=== PATIENT | female | born 1970 | race Caucasian/White ===

== ENCOUNTER 2016-08-27 18:02 | Emergency (ER) | payer OTHER ==
[~2016-08-27] VITALS: Ht 157.5 cm; Wt 63.6 kg
[~2016-08-27 18:02] MED LIST: ALPR1TAB7 PO; ASPI81TA3 PO; GABA300C16 PO; LOVA10TA63 PO; METH-493 PO
[2016-08-27] MEDS ORDERED: SOD CHLORIDE 0.9% 1,000 ML IV STA ×2 (18:10→19:21)
[2016-08-27 18:12] VITALS: Ht 157.5 cm; Wt 63.6 kg
[2016-08-27 18:33] LABS: ADD SCAN DIFF NO
[2016-08-27 18:36] LABS: BASOPHILS % 0.2 % (0.0-2.0); HEMATOCRIT 45.6 % (37.0-47.0); LYMPHOCYTES % 7.9 % (15.0-51.0); MEAN CORPUSCULAR HEMOGLOBIN 24.9 pg (29.0-33.0); MEAN CORPUSCULAR HGB CONC 32.9 g/dl (32.0-37.0); MEAN CORPUSCULAR VOLUME 75.6 fl (82.0-101.0); MEAN PLATELET VOLUME 10.6 fl (7.4-10.4); MONOCYTE # 0.3 10^3/ul (0.3-0.9); MONOCYTES % 2.3 % (0.0-11.0); NEUTROPHILS % 88.9 % (39.0-77.0); PLATELET COUNT 267 10^3/UL (140-415); RED BLOOD COUNT 6.03 10^6/ul (4.20-5.40); RED CELL DISTRIBUTION WIDTH 14.4 % (11.5-14.5); WHITE BLOOD COUNT 12.4 10^3/ul (4.8-10.8)
[2016-08-27 18:51] LABS: INR 1.02; PARTIAL THROMBOPLASTIN TIME 23.9 Sec (25.0-35.0); PROTIME 13.4 Sec (12.2-14.2)
[2016-08-27 19:06] LABS: ADD UMIC YES; URINE BILIRUBIN (Dip) NEGATIVE (NEGATIVE); URINE BLOOD (Dip) NEGATIVE (NEGATIVE); URINE GLUCOSE (Dip) NEGATIVE (NEGATIVE); URINE KETONES (Dip) 3+ (NEGATIVE); URINE LEUKOCYTE ESTERASE (Dip) NEGATIVE (NEGATIVE); URINE NITRITE (Dip) NEGATIVE (NEGATIVE); URINE TOTAL PROTEIN (Dip) 1+ (NEGATIVE); URINE UROBILINOGEN (Dip) 0.2 E.U./dL (0.1-1.0)
[2016-08-27 19:06] LABS: ALBUMIN 5.1 g/dl (3.3-4.9)
[2016-08-27 19:07] LABS: CHLORIDE 101 mmol/L (97-110); POTASSIUM 3.9 mmol/L (3.5-5.1); SODIUM 141 mmol/L (135-144)
[2016-08-27 19:09] LABS: BILIRUBIN,INDIRECT 0.6 mg/dl (0-1.1); BILIRUBIN,TOTAL 0.6 mg/dl (0.2-1.3); CREATININE 0.69 mg/dl (0.44-1.00)
[2016-08-27 19:10] LABS: ALANINE AMINOTRANSFERASE 14 IU/L (13-69); ALKALINE PHOSPHATASE 88 IU/L (42-121); ANION GAP 25 (8-16); ASPARTATE AMINO TRANSFERASE 22 IU/L (15-46); BLOOD UREA NITROGEN 14 mg/dl (7-20); CALCIUM 10.6 mg/dl (8.4-10.2); CARBON DIOXIDE 19 mmol/L (21-31); GLUCOSE 147 mg/dl (70-220); TOTAL PROTEIN 8.5 g/dl (6.1-8.1)
[2016-08-27 19:14] LABS: URINE COLOR YELLOW (YELLOW)
[2016-08-27 19:18] LABS: ACETAMINOPHEN < 10.0 ug/ml (10.0-30.0); ETHANOL < 10.0 mg/dl; SALICYLATE < 1.0 mg/dl (5.0-30.0)
[2016-08-27 19:21] LABS: SQUAMOUS EPITHELIAL CELL,UR FEW; URINE RBCS NONE SEEN /HPF (0)
[2016-08-27] MEDS ORDERED: ONDANSETRON 4 MG INJ ONE (19:26)
[2016-08-27] MEDS ORDERED: ONDANSETRON 4 MG INJ IV STA (19:29)
[2016-08-27 19:37] LABS: BARBITURATES NEGATIVE (NEGATIVE); BENZODIAZEPINES POSITIVE (NEGATIVE); CANNABINOIDS POSITIVE (NEGATIVE); COCAINE NEGATIVE (NEGATIVE); OPIATES NEGATIVE (NEGATIVE)
--- NOTE | 2016-08-27 22:07 | ERA ---
ER Documentation Chief Complaint Date/Time DATE: 08/27/16 TIME: 22:04 Chief Complaint Suicide attempt this morning, overdose on pills HPI This 46-year-old female presents to the emergency room for a suicide attempt. This patient took an unknown amount of rozerem, and Xanax and attempted suicide. The patient states that she has been feeling depressed. She denies any previous suicide attempt. She denies any other coingestions and came to the ER for evaluation after she called 911. ROS All systems reviewed and are negative except as per history of present illness. Medications Home Meds Active Scripts Gabapentin* (Gabapentin*) 300 Mg Capsule, 600 MG PO TID for 30 Days, #120 CAP Prov:NETTA DIMAS MD 02/23/16 Methimazole* (Methimazole*) 5 Mg Tablet, 10 MG PO QHS for 30 Days, #30 TAB Prov:NETTA DIMAS MD 02/23/16 Reported Medications Alprazolam* (Alprazolam*) 1 Mg Tablet, 2 MG PO BID, TAB 02/15/16 Aspirin (Aspirin) 81 Mg Chew, 81 MG PO DAILY 10/04/12 Lovastatin* (Lovastatin*) 10 Mg Tablet, 20 MG PO DAILY 10/04/12 Allergies Allergies: Coded Allergies: No Known Allergy (Verified , 02/15/16) PMhx/Soc History of Surgery: No Hx Neurological Disorder: No Hx Respiratory Disorders: No Hx Cardiac Disorders: No Hx Psychiatric Problems: Yes (bipolar disorder) Hx Miscellaneous Medical Probl: Yes (bipolar disorder, alcohol induced peripheral neuropathy, anxiety) Hx Alcohol Use: Yes Hx Substance Use: Yes (xanax) Hx Tobacco Use: Yes (current smoker) Smoking Status: Current every day smoker Physical Exam Vitals Vital Signs Date Time Temp Pulse Resp B/P Pulse Ox O2 Delivery O2 Flow Rate FiO2 08/27/16 20:01 91 28 140/91 97 Room Air 08/27/16 18:12 97.6 70 16 148/82 100 Physical Exam Const: Actively vomiting Head: Atraumatic Eyes: Normal Conjunctiva ENT: Normal External Ears, Nose and Mouth. Neck: Full range of motion..~ No meningismus. Resp: Clear to auscultation bilaterally Cardio: Regular rate and rhythm, no murmurs Abd: Soft, non tender, non distended. Normal bowel sounds Skin: No petechiae or rashes Back: No midline or flank tenderness Ext: No cyanosis, or edema Neur: Awake and alert Psych: Normal Mood and Affect Result Diagram: 08/27/16 1826 08/27/16 1800 Results 24 hrs Laboratory Tests Test 08/27/16 18:00 08/27/16 18:26 08/27/16 18:40 Sodium Level 141mmol/L Potassium Level 3.9mmol/L Chloride Level 101mmol/L Carbon Dioxide Level 19mmol/L Anion Gap 25 Blood Urea Nitrogen 14mg/dl Creatinine 0.69mg/dl Glucose Level 147mg/dl Calcium Level 10.6mg/dl Total Bilirubin 0.6mg/dl Direct Bilirubin 0.00mg/dl Indirect Bilirubin 0.6mg/dl Aspartate Amino Transf (AST/SGOT) 22IU/L Alanine Aminotransferase (ALT/SGPT) 14IU/L Alkaline Phosphatase 88IU/L Total Protein 8.5g/dl Albumin 5.1g/dl Globulin 3.40g/dl Albumin/Globulin Ratio 1.50 Salicylates Level < 1.0mg/dl Acetaminophen Level < 10.0ug/ml Ethyl Alcohol Level < 10.0mg/dl White Blood Count 12.410^3/ul Red Blood Count 6.0310^6/ul Hemoglobin 15.0g/dl Hematocrit 45.6% Mean Corpuscular Volume 75.6fl Mean Corpuscular Hemoglobin 24.9pg Mean Corpuscular Hemoglobin Concent 32.9g/dl Red Cell Distribution Width 14.4% Platelet Count 91082^3/UL Mean Platelet Volume 10.6fl Neutrophils % 88.9% Lymphocytes % 7.9% Monocytes % 2.3% Eosinophils % 0.0% Basophils % 0.2% Nucleated Red Blood Cells % 0.0/100WBC Neutrophils # 11.010^3/ul Lymphocytes # 1.010^3/ul Monocytes # 0.310^3/ul Eosinophils # 0.010^3/ul Basophils # 0.010^3/ul Nucleated Red Blood Cells # 0.010^3/ul Prothrombin Time 13.4Sec Prothrombin Time Ratio 1.0 INR International Normalized Ratio 1.02 Activated Partial Thromboplast Time 23.9Sec Urine Color YELLOW Urine Clarity CLEAR Urine pH 6.0 Urine Specific [place] >=1.030 Urine Ketones 3+ Urine Nitrite NEGATIVE Urine Bilirubin NEGATIVE Urine Urobilinogen 0.2 E.U./dL Urine Leukocyte Esterase NEGATIVE Urine Microscopic RBC NONE SEEN/HPF Urine Microscopic WBC 0-2/HPF Urine Squamous Epithelial Cells FEW Urine Hemoglobin NEGATIVE Urine Glucose NEGATIVE% Urine Total Protein 1+ Urine Opiates Screen NEGATIVE Urine Barbiturates NEGATIVE Urine Amphetamines Screen NEGATIVE Urine Benzodiazepines Screen POSITIVE Urine Cocaine Screen NEGATIVE Urine Cannabinoids POSITIVE Current Medications Medications (Trade) Dose Ordered Sig/[place] Route PRN Reason Start Time Stop Time Status Last Admin Dose Admin Sodium Chloride 1,000 ml @ 1,000 mls/hr Q1H STAT IV 08/27/16 18:10 08/27/16 19:09 DC 08/27/16 19:24 Sodium Chloride (NS) 1,000 ml @ 1,000 mls/hr Q1H STAT IV 08/27/16 19:21 08/27/16 20:20 DC 08/27/16 19:33 Ondansetron HCl (Zofran Inj) 4 mg STK-MED ONCE .ROUTE 08/27/16 19:26 08/27/16 19:27 DC Ondansetron HCl (Zofran Inj) 4 mg ONCE STAT IV 08/27/16 19:29 08/27/16 19:31 DC 08/27/16 19:32 Procedures/MDM EKG: Rate/Rhythm: [Normal Sinus Rhythm] QRS, ST, T-waves: [No changes consistent w/ acute ischemia] Impression: [No evidence of ischemia or arrhythmia] This 46-year-old female presents to the ER for suicide attempt. The patient did take Xanax, and rozerem. She took greater than 1 hour to her carotid in the emergency room. As she is actively vomiting when I evaluated her. This patient did have lab work drawn and she does have positive benzodiazepines and cannabinoids on drug screen. She is hemodynamically stable. We have contacted poison control who are okay with her management at this time. This patient is on the timeframe to receive activated charcoal. She will be placed in for inpatient psychiatric admission at this time. Patient presents with symptomatology consistent with the decompensation of previously diagnosed psychiatric disease. Based on history, physical exam and appropriate lab tests , I appreciate no evidence of significant life-threatening injury or illness that includes a psychiatric hospitalization. Patient is thus "medically clear" for psychiatric admission. In regards to the psychiatric complaints, this patient has clear evidence of high risk psychiatric symptoms with significant risk for decompensation, thus requiring admission to the hospital for stabilization. Departure Diagnosis: Primary Impression: Suicide threat or attempt Condition: APRIL Girard DO Aug 27, 2016 22:07
[2016-08-27 23:29] LABS: ALBUMIN 4.2 g/dl (3.3-4.9); POTASSIUM 3.5 mmol/L (3.5-5.1)
[2016-08-27 23:31] LABS: CREATININE 0.57 mg/dl (0.44-1.00)
[2016-08-27 23:32] LABS: ALBUMIN/GLOBULIN RATIO 1.44; BILIRUBIN,INDIRECT 0.4 mg/dl (0-1.1); BILIRUBIN,TOTAL 0.4 mg/dl (0.2-1.3); TOTAL PROTEIN 7.1 g/dl (6.1-8.1)
[2016-08-28] MEDS ORDERED: SOD CHLORIDE 0.9% 1,000 ML IV ONE ×2 (00:30)
[2016-08-28] MEDS ORDERED: ONDANSETRON 4 MG INJ IV STA ×2 (02:16→09:53)
--- NOTE | 2016-08-28 03:10 | PSY ---
Date/Time of Note Date/Time of Note DATE: 08/27/16 TIME: 22:49 Psychiatric Subjective Eval Consent Pt consented to telemedicine: Yes Subjective Evaluation Patient location: emergency Chief Complaint: Suicide attempt this morning, overdose on pills Reason for consult: suicidal attemtp History of present illness patient is a 46 yo female with PPH Of bipolar do who came to the ER due to a suicidal attempt, she overdosed on rozerem and xanax, she states that she has been feeling depressed, hopeless and helpless for weeks bu would not want to share with me why, she is anxious most of the time, denies any current or recent manic or psychotic symptoms but has had manic episode in the past, denies any drug or alcohol abuse. she state that she took the pills in order to kill herself, states that she has nothing to live for. denies any current si or hi. she is taking a lot of medication and does not know which she is supposed to take. list of possible medication she is on: latuda 60 mg daily 07/31/16 wellbutrin 150 mg po qd from 2015 with no refill gabapentin 600 mg po tid buspirone 15 mg bid depakote 250 mg po bid temazepam 15 mg po 2 tab po qhs prn xyzal 5 mg qd 08/09 cymbalta 60 mg po qd 08/09 xanax 08/09/16 2 mg bid 60 rozerem 8 mg po qhs 30 tablet Past psychiatric history past suicidal attempt yes Hospitalization: yes Family History denies Medical history Problems Medical Problems: (1) Acute weakness Status: Acute (2) Hyperthyroidism Status: Acute (3) [place] toxicity Status: Acute (4) Severe sepsis Status: Acute (5) Suicide threat or attempt Status: Acute Allergies: Coded Allergies: No Known Allergy (Verified , 02/15/16) Substance Abuse Substance use: No known substance abuse Social History Marital status: single Level of education: hs DPA/Conservatorship: No Occupation/Jail: unemployed Psychiatric Objective Eval Review of Systems: Review of Systems: Not Applicable Physical Examination: Physical Examination: Applicable Sleep: Insomnia Appetite: Decreased Energy: Decreased Interest: Decreased Mental Status Examination: Eye Contact: Good Psychomotor Activity: Normal Behavior: Cooperative Speech: Clear AFFECT: Depressed Mood: Depressed Though Process: Linear Thought Content: Normal Suicidal: No Homicidal: No On 72 hour hold: No Cognition: Alert Insight: Impared Judgement: Impared Attention Span: Intact Laboratory Results Laboratory Tests Test 08/27/16 18:00 08/27/16 18:26 08/27/16 18:40 Sodium Level 141mmol/L Potassium Level 3.9mmol/L Chloride Level 101mmol/L Carbon Dioxide Level 19mmol/L Anion Gap 25 Blood Urea Nitrogen 14mg/dl Creatinine 0.69mg/dl Glucose Level 147mg/dl Calcium Level 10.6mg/dl Total Bilirubin 0.6mg/dl Direct Bilirubin 0.00mg/dl Indirect Bilirubin 0.6mg/dl Aspartate Amino Transf (AST/SGOT) 22IU/L Alanine Aminotransferase (ALT/SGPT) 14IU/L Alkaline Phosphatase 88IU/L Total Protein 8.5g/dl Albumin 5.1g/dl Globulin 3.40g/dl Albumin/Globulin Ratio 1.50 Salicylates Level < 1.0mg/dl Acetaminophen Level < 10.0ug/ml Ethyl Alcohol Level < 10.0mg/dl White Blood Count 12.410^3/ul Red Blood Count 6.0310^6/ul Hemoglobin 15.0g/dl Hematocrit 45.6% Mean Corpuscular Volume 75.6fl Mean Corpuscular Hemoglobin 24.9pg Mean Corpuscular Hemoglobin Concent 32.9g/dl Red Cell Distribution Width 14.4% Platelet Count 55927^3/UL Mean Platelet Volume 10.6fl Neutrophils % 88.9% Lymphocytes % 7.9% Monocytes % 2.3% Eosinophils % 0.0% Basophils % 0.2% Nucleated Red Blood Cells % 0.0/100WBC Neutrophils # 11.010^3/ul Lymphocytes # 1.010^3/ul Monocytes # 0.310^3/ul Eosinophils # 0.010^3/ul Basophils # 0.010^3/ul Nucleated Red Blood Cells # 0.010^3/ul Prothrombin Time 13.4Sec Prothrombin Time Ratio 1.0 INR International Normalized Ratio 1.02 Activated Partial Thromboplast Time 23.9Sec Urine Color YELLOW Urine Clarity CLEAR Urine pH 6.0 Urine Specific [place] >=1.030 Urine Ketones 3+ Urine Nitrite NEGATIVE Urine Bilirubin NEGATIVE Urine Urobilinogen 0.2 E.U./dL Urine Leukocyte Esterase NEGATIVE Urine Microscopic RBC NONE SEEN/HPF Urine Microscopic WBC 0-2/HPF Urine Squamous Epithelial Cells FEW Urine Hemoglobin NEGATIVE Urine Glucose NEGATIVE% Urine Total Protein 1+ Urine Opiates Screen NEGATIVE Urine Barbiturates NEGATIVE Urine Amphetamines Screen NEGATIVE Urine Benzodiazepines Screen POSITIVE Urine Cocaine Screen NEGATIVE Urine Cannabinoids POSITIVE Assessment and Plan Assessment/Diagnosis [place] I: bipolar do type I current episode depressed severe without psychotic features generalized anxiety do [place] II: deferred [place] III: as per record [place] IV: poor social support [place] V: gaf 25 Recommendation/Plan Medication Management continue gabapentin 600 mg po tid discontinue wellbutrin, buspirone and depakote continue cymbalta 60 mg po qd continue latuda 60 mg po qd change xanax 2 mg po bid for ativan 2 mg po tid discontinue temazepam and continue rozerem 8 mg po qhs for sleep Follow-up/Disposition Please admit patient on unvoluntary status due to Danger to self, In my opinion, patient currently MEETS criterion for inpatient care and CANNOT be safely treated at a lower level of care today as evidenced by the following risk factors: Recent Suicidal Ideation severe self-destructive behavior Intense feelings of hopelessness and lack of future orientation. Significant recent DETERIORATION in function, behavior and thought processes Patient has failed outpatient and requires further inpatient assessment Medication changes require observation unavailable at a lower level of care 2440 Recommendation: EVIE Triplett MD Aug 27, 2016 23:05
[2016-08-28 04:03] LABS: ALBUMIN 3.8 g/dl (3.3-4.9); POTASSIUM 3.8 mmol/L (3.5-5.1)
[2016-08-28 04:05] LABS: BILIRUBIN,INDIRECT 0.4 mg/dl (0-1.1); BILIRUBIN,TOTAL 0.4 mg/dl (0.2-1.3); CREATININE 0.6 mg/dl (0.44-1.00)
[2016-08-28 04:06] LABS: ALBUMIN/GLOBULIN RATIO 1.31; CALCIUM 8.8 mg/dl (8.4-10.2); TOTAL PROTEIN 6.7 g/dl (6.1-8.1)
[2016-08-28] MEDS ORDERED: LEVO5TAB10 PO (16:51)
[2016-08-28] MEDS ORDERED: DIPH25CA6 PO (16:52)
[2016-08-28] MEDS ORDERED: ALPR2TAB PO (16:53)
[2016-08-28] MEDS ORDERED: DULO60CA59 PO (16:53)
[2016-08-28] MEDS ORDERED: LURA60TA PO (16:54)
[2016-08-28] MEDS ORDERED: GABA-526 PO (16:54)
[2016-08-28] MEDS ORDERED: BUPR150T6 PO (16:56)
[2016-08-28] MEDS ORDERED: BUSP10TA2 PO (16:56)
[2016-08-28] MEDS ORDERED: RAME8TAB10 PO (16:56)
[2016-08-28] MEDS ORDERED: LIDO1KIT TP (16:58)
[2016-08-28] MEDS ORDERED: FLUT16SP17 NASAL (16:59)
[2016-08-29 03:37] VITALS: BP 134/74; PULSE 60; RESP 16; TEMP 98
== END 2016-08-29 03:59 ==
LOC: E/R 18:02
DX: T42.6X2A Poisoning by other antiepileptic and sedative-hypnotic drugs, intentional self-harm, initial encounter (principal); R40.2252 Coma scale, best verbal response, oriented, at arrival to emergency department; F17.210 Nicotine dependence, cigarettes, uncomplicated; R40.2142 Coma scale, eyes open, spontaneous, at arrival to emergency department; T42.4X2A Poisoning by benzodiazepines, intentional self-harm, initial encounter; R40.2362 Coma scale, best motor response, obeys commands, at arrival to emergency department; R11.10 Vomiting, unspecified; Z79.82 Long term (current) use of aspirin
CPT/HCPCS: 36415; 80053; 80306; 80307; 81001; 85025; 85610; 85730; 93005; 96374; 96376; 99285; J2405; J7030; 81003